=== PATIENT | male | born 1985 | race Caucasian/White ===

== ENCOUNTER 2023-06-13 04:15 | Emergency (ER) | payer MEDICAID ==
[~2023-06-13] VITALS: Ht 180.3 cm; Wt 93.2 kg
[2023-06-13 04:41] VITALS: BP 120/74; PULSE 56; RESP 15; TEMP 98.5
[2023-06-13] MEDS ORDERED: IBUP-1492 PO (06:57)
== END 2023-06-13 07:07 | disposition home or self-care (01) ==
LOC: EMS 04:18
DX: S09.90XA Unspecified injury of head, initial encounter (principal); S40.011A Contusion of right shoulder, initial encounter; F12.90 Cannabis use, unspecified, uncomplicated; X58.XXXA Exposure to other specified factors, initial encounter; Y93.67 Activity, basketball; Y92.89 Other specified places as the place of occurrence of the external cause; Y99.8 Other external cause status
CPT/HCPCS: 99282; Z7502